=== PATIENT | female | born 1975 | race African-American/Black ===

== ENCOUNTER 2023-05-09 13:50 | Emergency (ER) | payer OTHER ==
[~2023-05-09] VITALS: Ht 162.6 cm; Wt 81.2 kg
== END 2023-05-09 16:54 | disposition home or self-care (01) ==
LOC: ER 13:50
DX: E11.9 Type 2 diabetes mellitus without complications (principal); R55 Syncope and collapse; K29.70 Gastritis, unspecified, without bleeding